=== PATIENT | female | born 1990 | race Caucasian/White ===

== ENCOUNTER 2018-10-08 12:10 | Emergency (ER) | payer BC ==
[2018-10-08 12:20] VITALS: TEMP 97.9
[2018-10-08] MEDS ORDERED: KETOROLAC 30 MG/ML 1 ML VIAL IM STA (12:47)
[2018-10-08] MEDS ORDERED: ORPHENADRINE 30 MG/ML 2 ML VIAL IM STA (12:47)
[2018-10-08] MEDS ORDERED: predniSONE 50 MG TAB PO STA (12:47)
[2018-10-08 12:55] LABS: Appearance,Urine Cloudy (Clear); Bacteria,Urine Occasional /hpf; Bilirubin,Urine Negative (Negative); Blood,Urine Negative (Negative); Color,Urine Yellow; Glucose,Urine (UA) Negative (Negative); Ketones,Urine Negative (Negative); Leukocyte Esterase,Urine Moderate (Negative); Mucus,Urine Rare /hpf; Nitrite,Urine Negative (Negative); PH, Urine 5.5 (5.0-8.0); Protein,Urine Negative (Negative); RBC,Urine 1 /hpf (0-5); Specific Gravity,Urine 1.015 (1.001-1.035); Squamous Epithelial Cell,Urine 10 /hpf (0-4); Urobilinogen,Urine <2.0 mg/dL (<2.0); WBC,Urine 8 /hpf (0-5)
--- NOTE | 2018-10-08 12:59 | ED ---
General Adult HPI - General Chief complaint: Back Pain/Injury Stated complaint: Back Pain Time Seen by Provider: 10/08/18 12:25 Source: patient, RN notes reviewed Mode of arrival: ambulatory Limitations: no limitations - History of Present Illness Initial comments: 28-year-old female presents to the emergency department for a chief complaint of right-sided lower back pain. Patient states that 2 days ago she was laying on the floor at her brother's house. States she went to stand up and felt a pop on the right side of her back. States that since then she has had right-sided back pain radiating down to her right thigh. States the radiating pain is sharp in nature. States this has happened before and it was her sciatic nerve in the past. Patient has not tried medication for this. States that she is here today because she was unable to go to work because of this pain and needs a work note. Patient has no other complaints at this time including shortness of breath, chest pain, abdominal pain, nausea or vomiting, headache, or visual changes. - Related Data Previous Rx's Medication Instructions Recorded Cyclobenzaprine [Flexeril] 10 mg PO TID #12 tab 10/08/18 predniSONE 50 mg PO DAILY #5 tablet 10/08/18 Allergies Allergy/AdvReac Type Severity Reaction Status Date / Time No Known Allergies Allergy Verified 10/08/18 12:48 Review of Systems ROS Statement: Those systems with pertinent positive or pertinent negative responses have been documented in the HPI. ROS Other: All systems not noted in ROS Statement are negative. Past Medical History Additional Past Medical History / Comment(s): sciatica History of Any Multi-Drug Resistant Organisms: None Reported Past Surgical History: No Surgical Hx Reported Past Psychological History: No Psychological Hx Reported Smoking Status: Current every day smoker Past Alcohol Use History: Occasional Past Drug Use History: None Reported General Exam Limitations: no limitations General appearance: alert, in no apparent distress Head exam: Present: atraumatic, normocephalic, normal inspection Eye exam: Present: normal appearance, PERRL, EOMI. Absent: scleral icterus, conjunctival injection, periorbital swelling ENT exam: Present: normal exam, mucous membranes moist Neck exam: Present: normal inspection, full ROM. Absent: tenderness, meningismus, lymphadenopathy Respiratory exam: Present: normal lung sounds bilaterally. Absent: respiratory distress, wheezes, rales, rhonchi, stridor Cardiovascular Exam: Present: regular rate, normal rhythm, normal heart sounds. Absent: bradycardia, tachycardia, irregular rhythm Extremities exam: Present: normal capillary refill (Capillary refill less than 2 seconds, DP pulse 2+ in the right lower extremity, equal bilaterally.), other (Positive straight leg raise test.). Absent: joint swelling (No edema or erythema present in the right lower extremity.), calf tenderness (Negative Homans sign.) Back exam: Absent: CVA tenderness (R), CVA tenderness (L), vertebral tenderness Neurological exam: Present: alert, oriented X3 Psychiatric exam: Present: normal affect, normal mood Course Vital Signs 10/08/18 12:17 Temperature 97.9 F Pulse Rate 102 H Respiratory 18 Rate Blood Pressure 154/97 O2 Sat by Pulse 97 Oximetry Medical Decision Making - Medical Decision Making 28-year-old female presents to the emergency department for chief coming of right-sided lower back pain that radiates to the right hip and thigh. States that this happened when she felt a pop when she was standing up from her brothers floor. Denies any midline pain. Denies any fevers or chills. No saddle anesthesia, bladder or bowel changes, numbness or tingling of the lower extremities or weakness of the lower extremities. No red flag symptoms. Patient is a in the emergency department. On exam she does have right sciatic notch tenderness and a positive straight leg raise. Neurovascular status is intact. No erythema or edema of the right leg. Patient was given Toradol, prednisone, Norflex and is feeling somewhat better. States walking and stretching significantly helps with her pain. Patient likely has a sciatic nerve pain. She will be given a prescription for steroids and Flexeril. Recommended following up with orthopedics. Patient requests work off until October 11 so she can see orthopedics on October 11. This was written for her. She'll return if she has any worsening symptoms which were discussed in detail. - Lab Data Lab Results 10/08/18 10/08/18 Range/Units 12:44 12:44 Urine Color Yellow Urine Appearance Cloudy H (Clear) Urine pH 5.5 (5.0-8.0) Ur Specific [place] 1.015 (1.001-1.035) Urine Protein Negative (Negative) Urine Glucose (UA) Negative (Negative) Urine Ketones Negative (Negative) Urine Blood Negative (Negative) Urine Nitrite Negative (Negative) Urine Bilirubin Negative (Negative) Urine Urobilinogen <2.0 (<2.0) mg/dL Ur Leukocyte Esterase Moderate H (Negative) Urine RBC 1 (0-5) /hpf Urine WBC 8 H (0-5) /hpf Ur Squamous Epith Cells 10 H (0-4) /hpf Urine Bacteria Occasional H (None) /hpf Urine Mucus Rare H (None) /hpf Urine HCG, Qual Not Detected (Not Detectd) Disposition Clinical Impression: Back pain, Sciatic leg pain Disposition: HOME SELF-CARE Condition: Good Instructions (If sedation given, give patient instructions): Sciatica (ED), Acute Low Back Pain (ED), Lower Back Exercises (ED) Additional Instructions: Please take Motrin and Tylenol for pain. Take steroid starting tomorrow. Make sure to eat while taking this. Take Flexeril as needed however do not drive or operate machinery on this. Follow up with primary care in 1-2 days as well as orthopedics. Return if you have any worsening symptoms. Prescriptions: Cyclobenzaprine [Flexeril] 10 mg PO TID #12 tab predniSONE 50 mg PO DAILY #5 tablet Is patient prescribed a controlled substance at d/c from ED?: No Referrals: Sadie Thomson MD [STAFF PHYSICIAN] - 1-2 days Vlad Ayala DO [Doctor of Osteopathic Medicine] - 1-2 days Time of Disposition: 13:50
[2018-10-08 14:05] VITALS: BP 127/75; PULSE 81; RESP 181
== END 2018-10-08 14:05 | disposition home or self-care (01) ==
LOC: EC 12:10
DX: M54.41 Lumbago with sciatica, right side (principal); F17.200 Nicotine dependence, unspecified, uncomplicated
CPT/HCPCS: 81001; 81025; 87086; 99283; 96372 ×2; J2360; J1885; J7512

== ENCOUNTER → 2018-10-24 | Outpatient (CLI) | payer BC ==
--- NOTE | 2018-10-24 13:57 | MR ---
EXAMINATION TYPE: MR lumbar spine wo con DATE OF EXAM: 10/24/2018 COMPARISON: None HISTORY: LBP, RLE radic, hx back injury, symptoms recently getting worse TECHNIQUE: Multiplanar, multisequence images of the lumbar spine were acquired. L1-L2: Normal disc appearance without desiccation. No herniation, protrusion or disc bulging. No ca nal stenosis is present. Foramina are patent bilaterally. L2-L3: No significant foraminal encroachment or central stenosis. No disc herniation. L3-L4: Posterior central disc herniation causes mild anterior mass effect on the thecal sac. On mild spinal stenosis. No significant foraminal encroachment. L4-L5: Posterior broad-based disc bulge with circumferential extension causes bilateral foraminal enc roachment as well as mild anterior mass effect on the thecal sac. Suspect lateral disc herniation, ax ial image #9 on the right. No significant central stenosis. There is facet arthropathy change. L5-S1: There is loss of disc height and signal. Posterior disc herniation is present causing anterior mass effect on the thecal sac and likely the proximal S1 nerve roots. There is mild spinal stenosis. Circumferential extension of endplate disc complex encroaches minimally on the foramina. There is fa cet arthropathy change with possible contribution to some local mass effect on the S1 nerve roots. Lumbar segments are intact. No paraspinal masses are identified. Conus medullaris has a normal appe arance. Lumbar vertebral bodies show preserved height and alignment, bone marrow signal suggests red marrow changes, correlate for possible anemia. IMPRESSION: Multilevel disc herniations. Foraminal encroachment as described.
== END | disposition home or self-care (01) ==
LOC: RADMRIMAIN 09:57
PROVIDERS: ATTEND Physical Medicine & Rehabilitation
DX: M51.16 Intervertebral disc disorders with radiculopathy, lumbar region (principal)
CPT/HCPCS: 72148

== ENCOUNTER → 2020-06-19 | Outpatient (CLI) | payer OTHER ==
[2020-06-19 14:38] VITALS: BP 145/91; PULSE 94; RESP 16; TEMP 98.3; BMI 49.2
--- NOTE | 2020-06-19 15:16 | P.HPBAR ---
Bariatric H&P - History & Physicial H&P Date: 06/19/20 History & Physicial: Visit/CC: Initial Patient initial contact: Initial weight: 160.118 kg Initial weight in pounds: 353.00 Height: 5 ft 11 in Initial BMI: 49.2 Last weight: Current weight: 160.118 kg Current weight in pounds: 353.00 Current BMI: 49.2 [place] body weight (based on NIH guidelines): 70.307 kg Excess body weight loss: 0.0% The patient is a 30 year-old F who presents for Bariatric Assessment. Patient presents for evaluation of weight loss surgery. Patient has been interested in weight loss surgery for many years. She has tried various weight loss diet without good success. Patient went to a seminar recently. She is interested in sleeve gastrectomy and has a good friend that had that performed recently. She has family members who have had complications with gastric bypass in the past. Patient suffers from PCOS, diet controlled hypertension, hypercholesterolemia, mild reflux, chronic back pain, tobacco use. Patient states she still smokes about one pack per day. Denies dysphagia or DVT in the past. Current BMI 49. Review of Systems The patient denies any acute changes in vision or hearing, no dysphagia or odynophagia, no chest pain or shortness of breath, no dysuria or hematuria, no headache, no runny nose, no rectal bleeding or melena, no unexplained weight loss Past Medical History Additional Past Medical History / Comment(s): sciatica History of Any Multi-Drug Resistant Organisms: None Reported Past Surgical History: No Surgical Hx Reported Smoking Status: Unknown if ever smoked Surgical - Exam Vital Signs Temp Pulse Resp BP 98.3 F 94 16 145/91 06/19/20 14:34 06/19/20 14:34 06/19/20 14:34 06/19/20 14:34 Physical exam: General: Well-developed, well-nourished HEENT: Normocephalic, sclerae nonicteric Abdomen: Nontender, nondistended Extremities: No edema Neuro: Alert and oriented Bariatric Assessment & Plan (1) Morbid obesity with BMI of 45.0-49.9, adult Narrative/Plan: Surgical risks and benefits discussed in detail with the patient. Anticipated weight loss also reviewed with the different surgeries. Patient remains interested in sleeve gastrectomy at this time. Patient requires a 6 month supervised weight loss. Will plan EGD in 4 months. Patient will begin smoking cessation at this time. Status: Acute Bariatric Checklist Checklist: Plan: Checklist: EGD: 1. Hiatal hernia: 2. H. Pylori: HgbA1c: Vitamin D: Smoking: Current every day smoker Primary care physician referral: Christine Peters Psychiatry clearance: Cardiology clearance: Sleep study: Diet journal: VTE risk score: VTE risk level: Rehab needs at discharge:
[2020-06-19 16:07] LABS: HCT 44.8 % (34.0-46.0); HGB 16.1 gm/dL (11.4-16.0); MCV 88.9 fL (80.0-100.0); Mean Platelet Volume 6.7; Platelet Count 321 k/uL (150-450); RBC 5.04 m/uL (3.80-5.40); RDW 12.8 % (11.5-15.5); WBC 11.6 k/uL (3.8-10.6)
[2020-06-20 01:17] LABS: Hemoglobin A1C 5.6 % (4.0-6.0)
[2020-06-20 03:13] LABS: Folate, Serum 7.2 ng/mL
[2020-06-20 04:27] LABS: African American GFR (CKD) 99.4 (60.0-200.0); Albumin 4.6 g/dL (3.80-4.90); Albumin/Globulin Ratio 1.59 (1.60-3.17); Anion Gap 9.8 mmol/L (4.00-12.00); Calcium 9.4 mg/dL (8.7-10.3); Carbon Dioxide 25.2 mmol/L (21.6-31.8); Globulin 2.9 g/dL (1.6-3.3); Non-African American GFR(CKD) 85.8 (60.0-200.0); Potassium 4.2 mmol/L (3.5-5.5); Total Bilirubin 0.6 mg/dL (0.3-1.2); Total Protein 7.5 g/dL (6.2-8.2)
== END ==
LOC: BARWHC3 14:21
PROVIDERS: ATTEND Surgery
DX: E66.01 Morbid (severe) obesity due to excess calories (principal); K90.89 Other intestinal malabsorption; E55.9 Vitamin D deficiency, unspecified; F17.200 Nicotine dependence, unspecified, uncomplicated; Z68.42 Body mass index [BMI] 45.0-49.9, adult
CPT/HCPCS: 84425; 80053; 82607; 82746; 83540; 85027; 82306; 83036; 93005; 36415; G0463; 99203

== ENCOUNTER 2020-10-21 07:39 | Day surgery (SDC) | payer OTHER ==
[2020-10-17 10:21] VITALS: BMI 46.0
[~2020-10-21 07:39] MED LIST: LACTATED RINGERS 1,000 ML IV SCH; LIDOCAINE 1% (10MG/ML) FOR IV START INTRADERMA PRN
[2020-10-21 08:19] VITALS: TEMP 97
[2020-10-21 08:22] LABS: Glucose,Whole Blood 108 mg/dL (75-99)
--- NOTE | 2020-10-21 08:30 | P.GSHP ---
History of Present Illness H&P Date: 10/21/20 Chief Complaint: GERD, presurgical 30-year-old female known to our service. Last seen in June in the bariatric clinic. Patient with mild reflux. Interested in sleeve gastrectomy. Past Medical History Past Medical History: Diabetes Mellitus, Hypertension, Liver Disease Additional Past Medical History / Comment(s): Sciatica. Fatty liver. "Cholesterol slightly elevated." History of Any Multi-Drug Resistant Organisms: None Reported Past Surgical History: No Surgical Hx Reported Additional Past Surgical History / Comment(s): [place] teeth. Past Anesthesia/Blood Transfusion Reactions: No Reported Reaction Past Psychological History: Depression Additional Psychological History / Comment(s): No treatment. Smoking Status: Current every day smoker Past Alcohol Use History: None Reported Additional Past Alcohol Use History / Comment(s): Has been smoking for 15 yrs, trying to quit, down to 1/2 PPD. Past Drug Use History: Marijuana Additional Drug Use History / Comment(s): Occasionally uses Marijuana. Aware no use 24 hrs prior to procedure. - Past Family History Mother Family Medical History: No Reported History Medications and Allergies Home Medications Medication Instructions Recorded Confirmed Type Cholecalciferol (Vitamin D3) 125 mcg PO DAILY 10/17/20 10/17/20 History [Vitamin D3 (125 MCG = 5,000 IU)] Ibuprofen [Motrin] 800 mg PO DAILY PRN 10/17/20 10/17/20 History Lisinopril [Zestril] 10 mg PO QAM 10/17/20 10/17/20 History metFORMIN HCL 500 mg PO DAILY 10/17/20 10/17/20 History Allergies Allergy/AdvReac Type Severity Reaction Status Date / Time No Known Allergies Allergy Verified 10/17/20 10:06 Surgical - Exam Vital Signs Temp Pulse Resp BP Pulse Ox 97 F L 84 20 111/54 97 10/21/20 08:15 10/21/20 08:15 10/21/20 08:15 10/21/20 08:15 10/21/20 08:15 Physical exam: General: Well-developed, well-nourished HEENT: Normocephalic, sclerae nonicteric Abdomen: Nontender, nondistended Extremities: No edema Neuro: Alert and oriented Results - Labs Abnormal Lab Results - Last 24 Hours (Table) 10/21/20 Range/Units 08:13 POC Glucose (mg/dL) 108 H (75-99) mg/dL Assessment and Plan (1) GERD (gastroesophageal reflux disease) Narrative/Plan: Will proceed with upper endoscopy Current Visit: Yes Status: Acute Code(s): K21.9 - GASTRO-ESOPHAGEAL REFLUX DISEASE WITHOUT ESOPHAGITIS SNOMED Code(s): 509071887
[2020-10-21] MEDS ORDERED: fentaNYL (PF) 50 MCG/ML 2 ML AMP ONE (08:31)
[2020-10-21] MEDS ORDERED: MIDAZOLAM 2 MG/2 ML VIAL ONE (08:31)
[2020-10-21] MEDS ORDERED: PROPOFOL 10 MG/ML 20 ML VIAL IV ONE (08:31)
--- NOTE | 2020-10-21 08:43 | P.PCN ---
Date of Procedure: 10/21/20 Procedure(s) Performed: Preoperative Dx: GERD, presurgical Postoperative Dx: Gastritis Procedure: EGD with Bx Anesthesia: Sedation Endoscopist: Dr. Savage Specimens: Antrum Endoscopic Procedure: The patient was on the endoscopy table in the left decubitus position. The Olympus gastroscope was inserted into the oropharynx and passed under direct visualization to the region of the third portion of the duodenum. From that point the scope was slowly withdrawn inspecting all surfaces carefully. There were no neoplastic inflammatory or polypoid lesions throughout the duodenum. The pylorus was widely patent. The stomach was carefully inspected. There was mild gastritis present. A biopsy of the antrum took place to rule out H. pylori. Retroflexion revealed a normal hiatus. The esophagus was then carefully examined. There were no neoplastic inflammatory or polypoid lesions throughout the visualized esophagus. The patient was then taken to the recovery room in stable condition per anesthesia guidelines. Recommendations: Resume diet. Await biopsy results. Follow bariatric clinic.
[2020-10-21 08:54] LABS: Glucose,Whole Blood 111 mg/dL (75-99)
[2020-10-21 09:00] VITALS: RESP 16
[2020-10-21 09:03] VITALS: BP 108/74; PULSE 75
== END 2020-10-21 09:33 | disposition home or self-care (01) ==
LOC: ORWHC2ENDO 07:39
PROVIDERS: ATTEND Surgery
DX: K21.9 Gastro-esophageal reflux disease without esophagitis (principal); I10 Essential (primary) hypertension; K21.00 Gastro-esophageal reflux disease with esophagitis, without bleeding; K29.70 Gastritis, unspecified, without bleeding; K31.9 Disease of stomach and duodenum, unspecified; K76.0 Fatty (change of) liver, not elsewhere classified; F17.210 Nicotine dependence, cigarettes, uncomplicated; Z79.1 Long term (current) use of non-steroidal anti-inflammatories (NSAID); E11.9 Type 2 diabetes mellitus without complications; Z79.84 Long term (current) use of oral hypoglycemic drugs; Z79.890 Hormone replacement therapy
CPT/HCPCS: 43239; 81025; 88305; J2250; J3010; J2704

== ENCOUNTER → 2020-10-27 | Outpatient (CLI) | payer OTHER ==
[2020-10-27 13:34] VITALS: BMI 48.9
== END ==
LOC: BARWHC3 08:48
PROVIDERS: ATTEND Surgery
DX: E66.01 Morbid (severe) obesity due to excess calories (principal); Z71.3 Dietary counseling and surveillance; Z68.42 Body mass index [BMI] 45.0-49.9, adult
CPT/HCPCS: 97804

== ENCOUNTER 2021-08-05 16:51 | Emergency (ER) | payer OTHER ==
[2021-08-05 17:21] VITALS: TEMP 98.4
[2021-08-05 18:06] LABS: Appearance,Urine Cloudy (Clear); Bacteria,Urine Occasional /hpf; Bilirubin,Urine Negative (Negative); Blood,Urine Trace (Negative); Color,Urine Yellow; Glucose,Urine (UA) Negative (Negative); Hyaline Casts,Urine 1 /lpf (0-2); Ketones,Urine 1+ (Negative); Leukocyte Esterase,Urine Trace (Negative); Mucus,Urine Rare /hpf; Nitrite,Urine Negative (Negative); PH, Urine 5.5 (5.0-8.0); Protein,Urine Negative (Negative); RBC,Urine 2 /hpf (0-5); Specific Gravity,Urine 1.023 (1.001-1.035); Squamous Epithelial Cell,Urine 10 /hpf (0-4); Urobilinogen,Urine <2.0 mg/dL (<2.0); WBC,Urine 3 /hpf (0-5)
[2021-08-05] MEDS ORDERED: ONDANSETRON 4 MG/2 ML VIAL IVP STA (19:23)
[2021-08-05] MEDS ORDERED: SODIUM CHLORIDE 0.9% 2,000 ML IV STA (19:23)
[2021-08-05] MEDS ORDERED: MORPHINE SULFATE 4 MG/ML SYRINGE IV STA (19:23)
[2021-08-05 19:45] LABS: Basophils # (A) 0.1 k/uL (0-0.2); Basophils % (A) 1 %; Eosinophils # (A) 0.3 k/uL (0-0.7); Eosinophils % (A) 2 %; HCT 46.8 % (34.0-46.0); Lymphocytes # (A) 3.3 k/uL (1.0-4.8); Lymphocytes % (A) 29 %; MCHC 34.2 g/dL (31.0-37.0); MCV 90.5 fL (80.0-100.0); Monocytes # (A) 0.6 k/uL (0-1.0); Monocytes % (A) 5 %; Neutrophils # (A) 6.8 k/uL (1.3-7.7); Neutrophils % (A) 60 %; Platelet Count 378 k/uL (150-450); RBC 5.17 m/uL (3.80-5.40); RDW 13.5 % (11.5-15.5); WBC 11.3 k/uL (3.8-10.6)
[2021-08-05 19:53] LABS: ALT 33 U/L (4-34); AST 24 U/L (14-36); African American GFR (CKD) >90 (>60 ml/min/1.73 sqM); Albumin 4.2 g/dL (3.5-5.0); Alkaline Phosphatase 73 U/L (38-126); Anion Gap 6 mmol/L; Blood Urea Nitrogen 10 mg/dL (7-17); Calcium 9.1 mg/dL (8.4-10.2); Carbon Dioxide 27 mmol/L (22-30); Chloride 102 mmol/L (98-107); Glucose 92 mg/dL (74-99); Lipase 43 U/L (23-300); Non-African American GFR(CKD) >90 (>60 ml/min/1.73 sqM); Sodium 135 mmol/L (137-145); Total Bilirubin 0.8 mg/dL (0.2-1.3); Total Protein 7.5 g/dL (6.3-8.2)
--- NOTE | 2021-08-05 20:12 | US ---
EXAMINATION TYPE: US pelvic complete DATE OF EXAM: 08/05/2021 COMPARISON: NONE CLINICAL HISTORY: suspect right ovarian cyst, rule out torsion. Patient states having a hx of PCOS. T hinks she has appendicitis and ovarian torsion. TECHNIQUE: Transabdominal (TA). Date of LMP: 07/08/21 EXAM MEASUREMENTS: Uterus: 7.7 x 4.8 x 4.5 cm Endometrial Stripe: 1.2 cm Right Ovary: 3.3 x 3.1 x 2.7 cm Left Ovary: 3.4 x 2.1 x 2.4 cm 1. Uterus: Anteverted appears wnl 2. Endometrium: Possible partial septation 3. Right Ovary: wnl; arterial and venous flow noted 4. Left Ovary: wnl; arterial and venous flow noted Spectral, color and waveform doppler imaging shows good arterial and venous flow within the ovaries ; there is no evidence for ovarian torsion. 5. Bilateral Adnexa: wnl 6. Posterior cul-de-sac: wnl IMPRESSION: 1. Normal pelvic ultrasound. There is normal vascular flow to the bilateral ovaries.
--- NOTE | 2021-08-05 21:36 | ED ---
Abdominal Pain HPI - General Chief Complaint: Abdominal Pain Stated Complaint: Abd Pain/Possible Appendicitis Time Seen by Provider: 08/05/21 19:02 Source: patient Mode of arrival: ambulatory Limitations: no limitations - History of Present Illness Initial Comments: Patient is a 31-year-old female with past medical history of PCOS resents to the emergency department with a chief complaint of abdominal pain. Patient states the pain is in the right lower abomen and has been intermittent for the past 2 weeks however has been consistent and more severe since last night. Patient states the pain started near her belly button and has moved to her right lower abdomen and right side. Patient also reports intermittent nausea and vomiting, unrelated to food intake. Reports normal bowel movements, nonbloody. Last bowel movement was today. Patient denies history of abdominal surgery. She still has her appendix. Denies fever, chills, burning with urination, blood in the urine, and vaginal discharge. Denies history of kidney stone and infection. Does not have concern for sexual transmitted infections. - Related Data Home Medications Medication Instructions Recorded Confirmed lisinopriL [Zestril] 10 mg PO DAILY 10/17/20 08/05/21 metFORMIN HCL 500 mg PO DAILY 10/17/20 08/05/21 Previous Rx's Medication Instructions Recorded Dicyclomine [Bentyl] 10 mg PO TID PRN 7 Days #21 capsule 08/05/21 Ondansetron Odt [Zofran Odt] 4 mg PO Q8HR PRN 7 Days #21 tab 08/05/21 Allergies Allergy/AdvReac Type Severity Reaction Status Date / Time No Known Allergies Allergy Verified 08/05/21 22:30 Review of Systems ROS Statement: Those systems with pertinent positive or pertinent negative responses have been documented in the HPI. ROS Other: All systems not noted in ROS Statement are negative. Past Medical History Past Medical History: Diabetes Mellitus, Hypertension, Liver Disease Additional Past Medical History / Comment(s): Sciatica. Fatty liver. "Cholesterol slightly elevated." History of Any Multi-Drug Resistant Organisms: None Reported Past Surgical History: No Surgical Hx Reported Additional Past Surgical History / Comment(s): [place] teeth. Past Anesthesia/Blood Transfusion Reactions: No Reported Reaction Past Psychological History: Depression Smoking Status: Current every day smoker Past Alcohol Use History: None Reported Past Drug Use History: Marijuana - Past Family History Mother Family Medical History: No Reported History General Exam Limitations: no limitations General appearance: alert, in no apparent distress Head exam: Present: atraumatic, normocephalic, normal inspection Eye exam: Present: normal appearance, PERRL, EOMI. Absent: scleral icterus, conjunctival injection, periorbital swelling Respiratory exam: Present: normal lung sounds bilaterally. Absent: respiratory distress, wheezes, rales, rhonchi, stridor Cardiovascular Exam: Present: regular rate, normal rhythm, normal heart sounds. Absent: systolic murmur, diastolic murmur, rubs, gallop, clicks GI/Abdominal exam: Present: soft, tenderness (RLQ), normal bowel sounds. Absent: distended, guarding, rebound, rigid Back exam: Absent: CVA tenderness (R) Neurological exam: Present: alert, oriented X3, CN II-XII intact Psychiatric exam: Present: normal affect, normal mood Skin exam: Present: warm, dry, intact, normal color. Absent: rash Course Vital Signs 08/05/21 08/05/21 17:17 20:25 Temperature 98.4 F Pulse Rate 95 Respiratory 16 20 Rate Blood Pressure 153/102 140/100 O2 Sat by Pulse 98 96 Oximetry Medical Decision Making - Medical Decision Making This is a 31-year-old female who presents with right lower quadrant abdominal pain, nausea, and vomiting. Thorough history and examination were performed. Patient is well-appearing and in no apparent distress. She is afebrile. Vital stable. The abdomen is soft. There is right lower quadrant tenderness. With patient's history of PCOS there is concern for ovarian cyst/torsion. There is also concern for appendicitis. I will begin with laboratory studies and ultrasound and follow-up with CT of the abdomen and pelvis is necessary. Laboratory studies significant for elevated white blood cell count 11.3. Pelvic ultrasound is normal with normal vascular flow to the bilateral ovaries and no ovarian cyst. CT of abdomen and pelvis with contrast shows no suspicious changes to suggest acute appendicitis or abnormality for right lower quadrant pain. Results discussed with patient. At this time there are no diagnostic studies to explain patient's symptoms. Patient will need to follow-up with her primary care provider for further evaluation and management. She'll be discharged with Bentyl and Zofran. Return parameters discussed. Patient verbalizes understanding and is agreeable to this plan. Dr. Booker is my attending. - Lab Data Result diagrams: 08/05/21 19:38 08/05/21 19:38 Lab Results 08/05/21 08/05/21 08/05/21 Range/Units 17:49 17:49 19:38 WBC 11.3 H (3.8-10.6) k/uL RBC 5.17 (3.80-5.40) m/uL Hgb 16.0 (11.4-16.0) gm/dL Hct 46.8 H (34.0-46.0) % MCV 90.5 (80.0-100.0) fL MCH 31.0 (25.0-35.0) pg MCHC 34.2 (31.0-37.0) g/dL RDW 13.5 (11.5-15.5) % Plt Count 378 (150-450) k/uL MPV 7.0 Neutrophils % 60 % Lymphocytes % 29 % Monocytes % 5 % Eosinophils % 2 % Basophils % 1 % Neutrophils # 6.8 (1.3-7.7) k/uL Lymphocytes # 3.3 (1.0-4.8) k/uL Monocytes # 0.6 (0-1.0) k/uL Eosinophils # 0.3 (0-0.7) k/uL Basophils # 0.1 (0-0.2) k/uL Sodium (137-145) mmol/L Potassium (3.5-5.1) mmol/L Chloride (98-107) mmol/L Carbon Dioxide (22-30) mmol/L Anion Gap mmol/L BUN (7-17) mg/dL Creatinine (0.52-1.04) mg/dL Est GFR (CKD-EPI)AfAm (>60 ml/min/1.73 sqM) Est GFR (CKD-EPI)NonAf (>60 ml/min/1.73 sqM) Glucose (74-99) mg/dL Calcium (8.4-10.2) mg/dL Total Bilirubin (0.2-1.3) mg/dL AST (14-36) U/L ALT (4-34) U/L Alkaline Phosphatase (38-126) U/L Total Protein (6.3-8.2) g/dL Albumin (3.5-5.0) g/dL Lipase (23-300) U/L Urine Color Yellow Urine Appearance Cloudy H (Clear) Urine pH 5.5 (5.0-8.0) Ur Specific [place] 1.023 (1.001-1.035) Urine Protein Negative (Negative) Urine Glucose (UA) Negative (Negative) Urine Ketones 1+ H (Negative) Urine Blood Trace H (Negative) Urine Nitrite Negative (Negative) Urine Bilirubin Negative (Negative) Urine Urobilinogen <2.0 (<2.0) mg/dL Ur Leukocyte Esterase Trace H (Negative) Urine RBC 2 (0-5) /hpf Urine WBC 3 (0-5) /hpf Ur Squamous Epith Cells 10 H (0-4) /hpf Urine Bacteria Occasional H (None) /hpf Hyaline Casts 1 (0-2) /lpf Urine Mucus Rare H (None) /hpf Urine HCG, Qual Not Detected (Not Detectd) 08/05/21 Range/Units 19:38 WBC (3.8-10.6) k/uL RBC (3.80-5.40) m/uL Hgb (11.4-16.0) gm/dL Hct (34.0-46.0) % MCV (80.0-100.0) fL MCH (25.0-35.0) pg MCHC (31.0-37.0) g/dL RDW (11.5-15.5) % Plt Count (150-450) k/uL MPV Neutrophils % % Lymphocytes % % Monocytes % % Eosinophils % % Basophils % % Neutrophils # (1.3-7.7) k/uL Lymphocytes # (1.0-4.8) k/uL Monocytes # (0-1.0) k/uL Eosinophils # (0-0.7) k/uL Basophils # (0-0.2) k/uL Sodium 135 L (137-145) mmol/L Potassium 4.0 (3.5-5.1) mmol/L Chloride 102 (98-107) mmol/L Carbon Dioxide 27 (22-30) mmol/L Anion Gap 6 mmol/L BUN 10 (7-17) mg/dL Creatinine 0.81 (0.52-1.04) mg/dL Est GFR (CKD-EPI)AfAm >90 (>60 ml/min/1.73 sqM) Est GFR (CKD-EPI)NonAf >90 (>60 ml/min/1.73 sqM) Glucose 92 (74-99) mg/dL Calcium 9.1 (8.4-10.2) mg/dL Total Bilirubin 0.8 (0.2-1.3) mg/dL AST 24 (14-36) U/L ALT 33 (4-34) U/L Alkaline Phosphatase 73 (38-126) U/L Total Protein 7.5 (6.3-8.2) g/dL Albumin 4.2 (3.5-5.0) g/dL Lipase 43 (23-300) U/L Urine Color Urine Appearance (Clear) Urine pH (5.0-8.0) Ur Specific [place] (1.001-1.035) Urine Protein (Negative) Urine Glucose (UA) (Negative) Urine Ketones (Negative) Urine Blood (Negative) Urine Nitrite (Negative) Urine Bilirubin (Negative) Urine Urobilinogen (<2.0) mg/dL Ur Leukocyte Esterase (Negative) Urine RBC (0-5) /hpf Urine WBC (0-5) /hpf Ur Squamous Epith Cells (0-4) /hpf Urine Bacteria (None) /hpf Hyaline Casts (0-2) /lpf Urine Mucus (None) /hpf Urine HCG, Qual (Not Detectd) Disposition Clinical Impression: Abdominal pain, Nausea and vomiting Disposition: HOME SELF-CARE Condition: Good Additional Instructions: Take medication as directed. Follow-up with primary care provider in one to 2 days. Return to the emergency department if you experience new, concerning, or worsening symptoms. Prescriptions: Dicyclomine [Bentyl] 10 mg PO TID PRN 7 Days #21 capsule PRN Reason: Pain Ondansetron Odt [Zofran Odt] 4 mg PO Q8HR PRN 7 Days #21 tab PRN Reason: Nausea Is patient prescribed a controlled substance at d/c from ED?: No Referrals: Christine Donato DO [Primary Care Provider] - 1-2 days
--- NOTE | 2021-08-05 21:38 | CT ---
EXAMINATION TYPE: CT abdomen pelvis w con DATE OF EXAM: 08/05/2021 COMPARISON: None INDICATION: RLQ pain, rule out appy DLP: 4303. mGycm, Automated exposure control for dose reduction was used. CONTRAST: 100 mL of Isovue 300. Study performed without Oral Contrast TECHNIQUE: Axial images were obtained from above the diaphragm to the pubic rami in the axial plane a t 5 mm thick sections. Reconstructed images are reviewed on the computer in the coronal plane. FINDINGS: Limited CT sections are obtained the lung bases. The lung bases are clear. CT ABDOMEN: Liver: There is moderate fatty infiltration to the liver. Spleen: Normal Pancreas: Normal Adrenal glands: The adrenal glands are normal. Gallbladder: Normal Kidneys: No masses are evident. No hydronephrosis is present. No cysts are present. Delayed images were obtained through the kidneys, which remain unremarkable. Aorta: Normal Inferior vena cava: Normal. CT PELVIS: Loops of bowel within the abdomen and pelvis are normal. The studies without oral contrast limiti ng bowel evaluation. Appendix: Normal as visualized. The appendix is not dilated. No periappendiceal inflammatory changes evident. No fluid is in the right lower quadrant. No suspicious lymphadenopathy in the right lower qu adrant. Urinary bladder: Normal. Genitourinary structures: Uterus appears normal in the right hemipelvis. Adnexa appear normal. Osseous structures: No suspicious lytic or sclerotic lesions. IMPRESSIONS: 1. No suspicious changes to suggest acute appendicitis or abnormality to account for right lower lucas drant pain. The appendix as visualized appears normal. 2. Moderate fatty infiltration of the liver.
[2021-08-05 22:54] VITALS: BP 114/70; PULSE 76; RESP 17
== END 2021-08-05 22:52 | disposition home or self-care (01) ==
LOC: EC 16:51
DX: R10.9 Unspecified abdominal pain (principal); R11.2 Nausea with vomiting, unspecified; E11.9 Type 2 diabetes mellitus without complications; I10 Essential (primary) hypertension; F17.200 Nicotine dependence, unspecified, uncomplicated
CPT/HCPCS: 99284; 96374; 96375; 96361; 36415; 80053; 83690; 85025; 81001; 81025; 93975; 76856; 74177; J2270; J2405; Q9967